=== PATIENT | female | born 1970 | race American Indian/Alaskan Native ===

== ENCOUNTER 2018-09-17 12:40 | Inpatient (IN) | payer OTHER ==
--- NOTE | 2018-09-17 13:01 | Emergency Department Report ---
Blank Doc - Documentation Documentation: 48 y o femae presents with chest pain started today while she was at work, mid tpo left localized hx of dm. labs acc eval
[2018-09-17 13:58] LABS: Basophils # (Auto) 0.1 K/mm3 (0.0-0.1); Basophils % (Auto) 1.5 % (0.0-1.8); Eosinophils # (Auto) 0.3 K/mm3 (0.0-0.4); Eosinophils % (Auto) 4.3 % (0.0-4.3); Hematocrit 38.2 % (30.3-42.9); Hemoglobin 12.7 gm/dl (10.1-14.3); Lymphocytes # (Auto) 2.6 K/mm3 (1.2-5.4); Lymphocytes % (Auto) 37.8 % (13.4-35.0); Mean Corpuscular HGB Conc 33 % (30-34); Mean Corpuscular Volume 92 fl (79-97); Monocytes # (Auto) 0.7 K/mm3 (0.0-0.8); Monocytes % (Auto) 10.3 % (0.0-7.3); Platelet Count 268 K/mm3 (140-440); Red Blood Count 4.15 M/mm3 (3.65-5.03); Red Cell Distribution Width 13.4 % (13.2-15.2)
[2018-09-17 14:08] LABS: Alanine Aminotransferase 35 units/L (7-56); Albumin 4.1 g/dL (3.9-5); BUN/Creatinine Ratio 11; Blood Urea Nitrogen 10 mg/dL (7-17); Calcium 9.5 mg/dL (8.4-10.2); Hemolysis Index 18
--- NOTE | 2018-09-17 14:38 | XRay Report ---
ROUTINE CHEST, TWO VIEWS: HISTORY: chest pain. The trachea, heart, mediastinal contour, lung rodriguez and bony thorax are unremarkable. IMPRESSION: Unremarkable chest x-ray.
[2018-09-17] MEDS ORDERED: ASPIRIN PO ONE (15:19)
[2018-09-17] MEDS ORDERED: NITRO-BID 2% TP ONE ×2 (15:19→17:03)
--- NOTE | 2018-09-17 15:29 | History and Physical Report ---
History of Present Illness Chief complaint: Im having chest pain History of present illness: 48 YO Female with HTN, HLD, DM presents to ED for evaluation. Pt states that she has experienced pain in her chest over the past 1 day with persistent symptoms during the same time frame. Pt states that pain is 5-6/10, Substernal, with radiation to her left shoulder, substernal, not worsened with exertion, not relieved with rest, associated with diaphoresis, as well as shortness of breath. Patient also acknowledges decreased exercise tolerance, as well as dypsnea on exertion. Pt transported to [facility] via private vehicle. Pt seen and evaluated in ED and found to have Angina as well as symptoms consistent with CHF. Pt admitted to telemetry. Cardiology team consulted in ED. Pt admitted to telemetry. No prior admission for review. All listed medication reconciled at time of admission. Past History Past Medical History: diabetes, hypertension, hyperlipidemia Past Surgical History: No surgical history, Other (reviewed) Social history: single Family history: diabetes, hypertension Medications and Allergies Allergies Allergy/AdvReac Type Severity Reaction Status Date / Time No Known Allergies Allergy Unverified 09/17/18 12:54 Home Medications Medication Instructions Recorded Confirmed Last Taken Type Atorvastatin Calcium 80 mg PO QHS 09/17/18 09/17/18 09/16/18 History Losartan/Hydrochlorothiazide 1 each PO DAILY 09/17/18 09/17/18 09/16/18 History [Losartan-Hctz 100-25 mg Tab] Metformin HCl [Glucophage ER] 750 mg PO BID 09/17/18 09/17/18 2 Weeks Ago History ~09/03/18 [place]-3 Fatty Acids/Fish Oil [Fish 4,000 mg PO DAILY 09/17/18 09/17/18 09/16/18 History Oil 1,000 mg Capsule] Venlafaxine [Effexor] 75 mg PO QHS 09/17/18 09/17/18 09/16/18 History Review of Systems Constitutional: no weight loss, no weight gain, no fever, no chills Ears, nose, mouth and throat: no ear pain, no tinnitis, no nose pain, no nasal discharge Breasts: no change in shape, no swelling, no mass Cardiovascular: chest pain, shortness of breath, dyspnea on exertion, decreased exercise tolerance, no palpitations, no rapid/irregular heart beat Respiratory: no cough, no excessive sputum, no congestion Gastrointestinal: no abdominal pain, no vomiting, no constipation, no hematemesis Genitourinary Female: no pelvic pain, no flank pain, no menorrhagia Rectal: no pain, no incontinence, no bleeding Musculoskeletal: no neck stiffness, no neck pain, no arm numbness/tingling, no shooting leg pain Integumentary: no rash, no redness, no wounds, no boils Neurological: no head injury, no paralysis, no parathesias, no tingling Psychiatric: no anxiety, no change in sleep habits, no insomnia, no change in libido Endocrine: no cold intolerance, no polyphagia, no polydipsia, no nocturia Hematologic/Lymphatic: no easy bruising, no easy bleeding, no lymphadenopathy Allergic/Immunologic: no urticaria, no wheezing, no persistent infections Exam - Constitutional Vitals: Temp Pulse Resp BP Pulse Ox 98.2 F 76 18 142/79 98 09/17/18 12:56 09/17/18 12:56 09/17/18 12:56 09/17/18 12:56 09/17/18 12:56 General appearance: Present: mild distress, obese - EENT Eyes: Present: PERRL ENT: hearing intact, clear oral mucosa - Neck Neck: Present: supple, normal ROM - Respiratory Respiratory effort: normal Respiratory: bilateral: CTA - Cardiovascular Heart Sounds: Present: S1 & S2. Absent: rub, click - Extremities Extremities: pulses symmetrical, No edema Peripheral Pulses: within normal limits - Abdominal General gastrointestinal: Present: soft, non-tender, non-distended, normal bowel sounds Female genitourinary: Present: normal - Integumentary Integumentary: Present: clear, warm, dry - Musculoskeletal Musculoskeletal: gait normal, strength equal bilaterally - Psychiatric Psychiatric: appropriate mood/affect, intact judgment & insight - Neurologic Neurologic: CNII-XII intact, moves all extremities Results - Labs CBC & Chem 7: 09/17/18 13:26 09/17/18 13:26 Labs: Abnormal lab results 09/17/18 09/17/18 Range/Units 13:26 13:26 Lymph % (Auto) 37.8 H (13.4-35.0) % [place] % (Auto) 10.3 H (0.0-7.3) % Glucose 212 H (65-100) mg/dL Assessment and Plan - Patient Problems (1) Angina at rest Current Visit: Yes Status: Acute Plan to address problem: Admit to telemetry, cardiology consulted in ED, serial cardiac enzymes, ekg, morphine, supplemental oxygen, nitro, aspirin, stress test (2) CHF (congestive heart failure) Current Visit: Yes Status: Suspected Qualifiers: Heart failure type: diastolic Heart failure chronicity: acute Qualified Code(s): I50.31 - Acute diastolic (congestive) heart failure Plan to address problem: Admit to telemetry, Strict I/O, daily weight, monitor uop q shift, BNP, Echo, afterload reduction, chest x ray, cardiology consulted (3) HTN (hypertension) Current Visit: Yes Status: Acute Qualifiers: Hypertension type: essential hypertension Qualified Code(s): I10 - Essential (primary) hypertension Plan to address problem: Monitor bp q shift, continue medical management (4) HLD (hyperlipidemia) Current Visit: Yes Status: Acute Qualifiers: Hyperlipidemia type: mixed hyperlipidemia Qualified Code(s): E78.2 - Mixed hyperlipidemia Plan to address problem: Lipid panel, statin therapy, risk factor reduction (5) Diabetes Current Visit: Yes Status: Acute Plan to address problem: ADA diet, insulin, accucheck, diabetes education, hgb a1c (6) DVT prophylaxis Current Visit: Yes Status: Acute Plan to address problem: SCD to BLE while in bed, prophylactic lovenox
--- NOTE | 2018-09-17 15:30 | Emergency Department Report ---
ED Chest Pain HPI - General Chief Complaint: Chest Pain Stated Complaint: CHEST PAIN Time Seen by Provider: 09/17/18 12:58 Source: patient Mode of arrival: Ambulatory Limitations: No Limitations - History of Present Illness Initial Comments: Patient is a 48-year-old female with past medical history hypertension diabetes who has a history of losing her 3 years ago to acute coronary arteries syndrome who is presenting with chest pain. Patient is very worrisome she stated that the symptoms she had today are similar to her her who of a heart attack. Patient states she was at work and was at rest at the time when she developed chest pressure with shortness of breath and diaphoresis. Patient states she had some discomfort in her left shoulder as well. Patient states the diaphoresis and short of breath has improved however she still has some pressure on the chest. Patient denies any cough cold congestion fevers or chills. - Related Data Allergies Allergy/AdvReac Type Severity Reaction Status Date / Time No Known Allergies Allergy Unverified 09/17/18 12:54 Heart Score - HEART Score History: Highly suspicious EKG: Non-specific Age: 45-65 Risk factors: > 3 risk factors or hx of atherosclerotic disease Troponin: < normal limit HEART Score: 6 ED Review of Systems ROS: Stated complaint: CHEST PAIN Other details as noted in HPI Comment: All other systems reviewed and negative ED Past Medical Hx - Past Medical History Hx Hypertension: Yes Hx Diabetes: Yes Additional medical history: elevated cholesterol - Surgical History Past Surgical History?: No - Social History Smoking Status: Never Smoker Substance Use Type: None ED Physical Exam - General Limitations: No Limitations General appearance: alert, in no apparent distress - Head Head exam: Present: atraumatic, normocephalic - Eye Eye exam: Present: normal appearance - ENT ENT exam: Present: mucous membranes moist - Neck Neck exam: Present: normal inspection - Respiratory Respiratory exam: Present: normal lung sounds bilaterally. Absent: respiratory distress, wheezes, rales, rhonchi - Cardiovascular Cardiovascular Exam: Present: regular rate, normal rhythm. Absent: systolic murmur, diastolic murmur, rubs, gallop - GI/Abdominal GI/Abdominal exam: Present: soft, normal bowel sounds. Absent: distended, tenderness, guarding, rebound - Extremities Exam Extremities exam: Present: normal inspection - Back Exam Back exam: Present: normal inspection - Neurological Exam Neurological exam: Present: alert, oriented X3 - Psychiatric Psychiatric exam: Present: normal affect, normal mood - Skin Skin exam: Present: warm, dry, intact, normal color. Absent: rash ED Course Vital Signs 09/17/18 12:56 Temperature 98.2 F Pulse Rate 76 Respiratory 18 Rate Blood Pressure 142/79 O2 Sat by Pulse 98 Oximetry FLORES score - Flores Score Age > 65: (0) No Aspirin use within the Past 7 Days: (0) No 3 or more CAD Risk Factors: (1) Yes 2 or more Angina events in past 24 hrs: (1) Yes Known CAD with more than 50% Stenosis: (0) No Elevated Cardiac Markers: (0) No ST Deviation Greater than 0.5mm: (0) No FLORES Score: 2 ED Medical Decision Making - Lab Data Result diagrams: 09/17/18 13:26 09/17/18 13:26 Lab Results 09/17/18 09/17/18 09/17/18 Range/Units 13:26 13:26 13:26 WBC 6.9 (4.5-11.0) K/mm3 RBC 4.15 (3.65-5.03) M/mm3 Hgb 12.7 (10.1-14.3) gm/dl Hct 38.2 (30.3-42.9) % MCV 92 (79-97) fl MCH 31 (28-32) pg MCHC 33 (30-34) % RDW 13.4 (13.2-15.2) % Plt Count 268 (140-440) K/mm3 Lymph % (Auto) 37.8 H (13.4-35.0) % [place] % (Auto) 10.3 H (0.0-7.3) % Eos % (Auto) 4.3 (0.0-4.3) % Baso % (Auto) 1.5 (0.0-1.8) % Lymph # 2.6 (1.2-5.4) K/mm3 [place] # 0.7 (0.0-0.8) K/mm3 Eos # 0.3 (0.0-0.4) K/mm3 Baso # 0.1 (0.0-0.1) K/mm3 Seg Neutrophils % 46.1 (40.0-70.0) % Seg Neutrophils # 3.2 (1.8-7.7) K/mm3 Sodium 138 (137-145) mmol/L Potassium 4.2 (3.6-5.0) mmol/L Chloride 100.1 (98-107) mmol/L Carbon Dioxide 27 (22-30) mmol/L Anion Gap 15 mmol/L BUN 10 (7-17) mg/dL Creatinine 0.9 (0.7-1.2) mg/dL Estimated GFR > 60 ml/min BUN/Creatinine Ratio 11 % Glucose 212 H (65-100) mg/dL Calcium 9.5 (8.4-10.2) mg/dL Total Bilirubin 0.20 (0.1-1.2) mg/dL AST 27 (5-40) units/L ALT 35 (7-56) units/L Alkaline Phosphatase 92 (35-129) units/L Troponin T < 0.010 (0.00-0.029) ng/mL Total Protein 7.4 (6.3-8.2) g/dL Albumin 4.1 (3.9-5) g/dL Albumin/Globulin Ratio 1.2 % HCG, Qual Negative (Negative) - EKG Data -: EKG Interpreted by Co EKG shows normal: sinus rhythm, axis, intervals, QRS complexes, ST-T waves - Radiology Data Radiology results: report reviewed - Medical Decision Making Patient with a heart score of 6. Patient to be admitted to the hospitalist service for further cardiac risk stratification. Patient's first troponin is within normal limits. Patient will have a Nitropaste placed on her chest secondary to continued mild chest discomfort. Patient with hospitalist service under Dr. Nickerson. Critical Care Time: Yes (30) Critical care attestation.: If time is entered above; I have spent that time in minutes in the direct care of this critically ill patient, excluding procedure time. ED Disposition Clinical Impression: Unstable angina Disposition: OP ADMIT IP TO THIS HOSP Is pt being admited?: Yes Does the pt Need Aspirin: No Condition: Stable Instructions: Angina (ED) Time of Disposition: 15:30
[2018-09-17] MEDS ORDERED: NITROSTAT SL PRN (15:31)
[2018-09-17] MEDS ORDERED: PROVENTIL IH PRN (15:31)
[2018-09-17] MEDS ORDERED: BABY ASPIRIN PO STA (15:31)
[2018-09-17] MEDS ORDERED: TYLENOL PO PRN (15:31)
[2018-09-17] MEDS ORDERED: ZOFRAN IV PRN (15:31)
[2018-09-17] MEDS ORDERED: SODIUM CHLORIDE FLUSH SYRINGE 10 ML IV PRN ×2 (15:31)
[2018-09-17 16:30] LABS: Chol/HDL Ratio 4.71 %
[2018-09-17] MEDS ORDERED: BABY ASPIRIN ONE (17:03)
--- NOTE | 2018-09-17 18:47 | Consultation ---
History of Present Illness Consult date: 09/17/18 Consult reason: chest pain History of present illness: The patient is a 48-year-old woman who presented to the emergency room with c hest pain. She describes left upper chest pain, one day duration, pain was nonexertional, not associated with shortness of breath. Most notably, the pain is positional with movement of her thorax, and there is marked tenderness to palpation over the left chest wall location. The chest pain is reproducible with palpation over the area. Other than tenderness to palpation over the left chest wall, she looks and feels well. Comorbidities include hypertension, hyperlipidemia and diabetes. No prior cardiac history. 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 She reports no symptoms of chest pain or shortness of breath at the time. Workup in the emergency room including serial ECGs showed normal sinus rhythm, normal ECG. Chest x-ray is normal, no cardiomegaly, no infiltrates and no interstitial edema. Medications and Allergies Allergies Allergy/AdvReac Type Severity Reaction Status Date / Time No Known Allergies Allergy Unverified 09/17/18 12:54 Home Medications Medication Instructions Recorded Confirmed Last Taken Type Atorvastatin Calcium 80 mg PO QHS 09/17/18 09/17/18 09/16/18 History Losartan/Hydrochlorothiazide 1 each PO DAILY 09/17/18 09/17/18 09/16/18 History [Losartan-Hctz 100-25 mg Tab] Metformin HCl [Glucophage ER] 750 mg PO BID 09/17/18 09/17/18 2 Weeks Ago History ~09/03/18 [place]-3 Fatty Acids/Fish Oil [Fish 4,000 mg PO DAILY 09/17/18 09/17/18 09/16/18 History Oil 1,000 mg Capsule] Venlafaxine [Effexor] 75 mg PO QHS 09/17/18 09/17/18 09/16/18 History Active Meds: Active Medications Acetaminophen (Tylenol) 650 mg PO Q4H PRN PRN Reason: Pain MILD(1-3)/Fever >100.5/VALLECILLO Albuterol (Proventil) 2.5 mg IH Q4HRT PRN PRN Reason: Shortness Of Breath Nitroglycerin (Nitrostat) 0.4 mg SL Q5M PRN PRN Reason: Chest Pain Ondansetron HCl (Zofran) 4 mg IV Q8H PRN PRN Reason: Nausea And Vomiting Sodium Chloride (Sodium Chloride Flush Syringe 10 Ml) 10 ml IV BID BIBI Sodium Chloride (Sodium Chloride Flush Syringe 10 Ml) 10 ml IV PRN PRN PRN Reason: LINE FLUSH Sodium Chloride (Sodium Chloride Flush Syringe 10 Ml) 10 ml IV PRN PRN PRN Reason: LINE FLUSH Review of Systems Cardiovascular: chest pain, no orthopnea, no palpitations, no rapid/irregular heart beat, no edema, no syncope, no lightheadedness, no shortness of breath Physical Examination Vital Signs Temp Pulse Resp BP Pulse Ox 98.2 F 76 18 142/79 98 09/17/18 12:56 09/17/18 12:56 09/17/18 12:56 09/17/18 12:56 09/17/18 12:56 General appearance: no acute distress HEENT: Positive: PERRL Neck: Positive: neck supple Cardiac: Positive: Reg Rate and Rhythm Lungs: Positive: clear to auscultation Neuro: Positive: Grossly Intact Abdomen: Positive: Soft Female genitourinary: deferred Skin: Positive: Clear Extremities: Absent: edema Results 09/17/18 13:26 09/17/18 13:26 Cardiac Enzymes 09/17/18 Range/Units 13:26 AST 27 (5-40) units/L Lipids 09/17/18 Range/Units 15:43 Triglycerides 292 H (2-149) mg/dL Cholesterol 250 H (50-199) mg/dL HDL Cholesterol 53 (40-59) mg/dL Cholesterol/HDL Ratio 4.71 % CBC 09/17/18 Range/Units 13:26 WBC 6.9 (4.5-11.0) K/mm3 RBC 4.15 (3.65-5.03) M/mm3 Hgb 12.7 (10.1-14.3) gm/dl Hct 38.2 (30.3-42.9) % Plt Count 268 (140-440) K/mm3 Lymph # 2.6 (1.2-5.4) K/mm3 [place] # 0.7 (0.0-0.8) K/mm3 Eos # 0.3 (0.0-0.4) K/mm3 Baso # 0.1 (0.0-0.1) K/mm3 Comprehensive Metabolic Panel 09/17/18 Range/Units 13:26 Sodium 138 (137-145) mmol/L Potassium 4.2 (3.6-5.0) mmol/L Chloride 100.1 (98-107) mmol/L Carbon Dioxide 27 (22-30) mmol/L BUN 10 (7-17) mg/dL Creatinine 0.9 (0.7-1.2) mg/dL Glucose 212 H (65-100) mg/dL Calcium 9.5 (8.4-10.2) mg/dL AST 27 (5-40) units/L ALT 35 (7-56) units/L Alkaline Phosphatase 92 (35-129) units/L Total Protein 7.4 (6.3-8.2) g/dL Albumin 4.1 (3.9-5) g/dL EKG interpretations - Telemetry EKG Rhythm: Sinus Rhythm Assessment and Plan - Patient Problems (1) Chest pain, musculoskeletal Current Visit: Yes Status: Acute Plan to address problem: Chest pain is atypical, associated with reproducible tenderness over the left chest wall, appears noncardiac, most likely costochondritis. Serial ECG is normal. Recommend intravenous Toradol for treatment of costochondritis. No further cardiac workup is indicated for musculoskeletal chest pain.
[2018-09-17] MEDS ORDERED: COZAAR ONE (19:32)
[2018-09-17] MEDS ORDERED: COZAAR PO SCH (20:00)
[2018-09-17] MEDS ORDERED: TORADOL IV PRN (20:00)
[2018-09-17] MEDS: HumuLIN R SUB-Q SCH (22:27)
[2018-09-17] MEDS: SODIUM CHLORIDE FLUSH SYRINGE 10 ML IV SCH (22:28)
[2018-09-18] MEDS ORDERED: D50W (25GM) Syringe IV PRN (03:31)
[2018-09-18 04:55] LABS: Basophils % (Auto) 1.1 % (0.0-1.8); Eosinophils % (Auto) 6.1 % (0.0-4.3); Hematocrit 36.5 % (30.3-42.9); Hemoglobin 12.2 gm/dl (10.1-14.3); Lymphocytes % (Auto) 40.8 % (13.4-35.0); Mean Corpuscular HGB Conc 34 % (30-34); Mean Corpuscular Volume 91 fl (79-97); Monocytes % (Auto) 10.6 % (0.0-7.3); Platelet Count 245 K/mm3 (140-440); Red Cell Distribution Width 13.3 % (13.2-15.2)
[2018-09-18 04:56] LABS: Basophils # (Auto) 0.1 K/mm3 (0.0-0.1); Eosinophils # (Auto) 0.4 K/mm3 (0.0-0.4); Lymphocytes # (Auto) 2.4 K/mm3 (1.2-5.4); Monocytes # (Auto) 0.6 K/mm3 (0.0-0.8)
[2018-09-18 05:21] LABS: BUN/Creatinine Ratio 16; Blood Urea Nitrogen 11 mg/dL (7-17); Hemolysis Index 10
[2018-09-18] MEDS: HumuLIN R SUB-Q SCH ×4 (07:55→22:46)
[2018-09-18] MEDS: HumaLOG SUB-Q SCH ×4 (07:55→22:47)
[2018-09-18] MEDS: HCTZ PO SCH (10:05)
[2018-09-18] MEDS: FISH OIL PO SCH (10:06)
[2018-09-18] MEDS: COZAAR PO SCH (10:09)
[2018-09-18] MEDS: SODIUM CHLORIDE FLUSH SYRINGE 10 ML IV SCH ×2 (10:09→22:47)
--- NOTE | 2018-09-18 11:08 | Progress Note ---
Assessment and Plan Chest pain is atypical associated with reproducible tenderness over the left chest wall, appears noncardiac, most likely costochondritis. Hypertension Diabetes Hyperlipidemia Recommend Trial of intravenous Toradol for treatment of costochondritis. Otherwise, no further cardiac workup is indicated for musculoskeletal chest pain. Subjective Date of service: 09/18/18 Interval history: Patient reports soreness of her chest but this has somewhat improved since admission. Objective Vital Signs Temp Pulse Resp BP BP Pulse Ox 09/18/18 08:03 98.5 F 67 16 111/66 98 09/18/18 05:41 98.4 F 64 20 108/55 98 09/18/18 04:04 89 09/18/18 00:58 98.3 F 68 20 98/50 96 09/17/18 21:04 98.3 F 81 20 112/69 94 09/17/18 20:21 77 14 147/81 97 09/17/18 20:11 77 12 147/81 99 09/17/18 20:04 18 09/17/18 20:01 70 14 147/81 99 09/17/18 19:51 77 16 147/81 98 09/17/18 19:41 72 15 147/81 98 09/17/18 19:31 79 15 147/81 98 09/17/18 19:21 78 13 147/81 98 09/17/18 19:11 84 13 147/81 99 09/17/18 19:01 81 13 153/76 99 09/17/18 18:58 98.4 F 74 18 146/74 99 09/17/18 18:51 73 12 153/76 98 09/17/18 18:41 97 H 22 133/80 99 09/17/18 18:30 71 16 147/81 98 09/17/18 18:21 76 15 133/80 99 09/17/18 18:10 72 16 128/63 99 09/17/18 18:01 80 13 128/63 98 09/17/18 17:51 76 12 143/87 99 09/17/18 17:41 67 15 144/79 99 09/17/18 17:30 68 16 144/79 100 09/17/18 17:21 68 14 155/86 100 09/17/18 17:12 18 100 09/17/18 17:11 70 17 145/88 100 09/17/18 17:10 72 145/88 09/17/18 17:09 79 15 145/88 99 09/17/18 17:00 72 18 145/88 100 09/17/18 16:51 77 14 98 09/17/18 16:41 68 14 99 09/17/18 16:31 74 17 100 09/17/18 16:21 77 13 99 09/17/18 16:10 86 14 99 09/17/18 12:56 98.2 F 76 18 142/79 98 - Physical Examination General: No Apparent Distress HEENT: Positive: PERRL Neck: Positive: neck supple Cardiac: Positive: Reg Rate and Rhythm Lungs: Positive: Normal Breath Sounds Neuro: Positive: Grossly Intact Abdomen: Positive: Soft Extremities: Absent: edema - Labs and Meds Cardiac Enzymes 09/17/18 Range/Units 13:26 AST 27 (5-40) units/L Lipids 09/17/18 Range/Units 15:43 Triglycerides 292 H (2-149) mg/dL Cholesterol 250 H (50-199) mg/dL HDL Cholesterol 53 (40-59) mg/dL Cholesterol/HDL Ratio 4.71 % CBC 09/17/18 09/18/18 Range/Units 13:26 04:32 WBC 6.9 5.8 (4.5-11.0) K/mm3 RBC 4.15 4.00 (3.65-5.03) M/mm3 Hgb 12.7 12.2 (10.1-14.3) gm/dl Hct 38.2 36.5 (30.3-42.9) % Plt Count 268 245 (140-440) K/mm3 Lymph # 2.6 2.4 (1.2-5.4) K/mm3 [place] # 0.7 0.6 (0.0-0.8) K/mm3 Eos # 0.3 0.4 (0.0-0.4) K/mm3 Baso # 0.1 0.1 (0.0-0.1) K/mm3 Comprehensive Metabolic Panel 09/17/18 09/18/18 Range/Units 13:26 04:32 Sodium 138 139 (137-145) mmol/L Potassium 4.2 4.1 (3.6-5.0) mmol/L Chloride 100.1 100.9 (98-107) mmol/L Carbon Dioxide 27 25 (22-30) mmol/L BUN 10 11 (7-17) mg/dL Creatinine 0.9 0.7 (0.7-1.2) mg/dL Glucose 212 H 205 H (65-100) mg/dL Calcium 9.5 9.0 (8.4-10.2) mg/dL AST 27 (5-40) units/L ALT 35 (7-56) units/L Alkaline Phosphatase 92 (35-129) units/L Total Protein 7.4 (6.3-8.2) g/dL Albumin 4.1 (3.9-5) g/dL
--- NOTE | 2018-09-18 16:37 | Progress Note ---
Assessment and Plan Assessment and plan: Chest pain Trial of Toradol iv Discussed with cardiology Hypertension monitor BP Diabetes mellitus type 2 Fingerstick qac and hs Hyperlipidemia statin Poss dc home tomorrow if chest pain subsides History Interval history: Chest pain, sharp tender to touch Hospitalist Physical - Physical exam Narrative exam: Gen: Not in acute distress, lying in bed HEENT: Normocephalic, atraumatic Neck: supple, no JVD Heart: S1 and S2 reg, no murmurs, rubs or gallop Lungs: Clear, no cackles, tender left chest walli Abd: soft, non tender, non distended, normal BS Ext: No edema, no clubbing, no cyanosis, Neuro: AAO x 3, no focal signs, moves all ext Psych:Normal mood - Constitutional Vitals: Temp Pulse Resp BP Pulse Ox 98.5 F 90 20 111/66 99 09/18/18 08:03 09/18/18 12:00 09/18/18 08:04 09/18/18 08:03 09/18/18 08:04 General appearance: Present: obese Results - Labs CBC & Chem 7: 09/18/18 04:32 09/18/18 04:32 Labs: Laboratory Last Values WBC 5.8 K/mm3 (4.5-11.0) 09/18/18 04:32 RBC 4.00 M/mm3 (3.65-5.03) 09/18/18 04:32 Hgb 12.2 gm/dl (10.1-14.3) 09/18/18 04:32 Hct 36.5 % (30.3-42.9) 09/18/18 04:32 MCV 91 fl (79-97) 09/18/18 04:32 MCH 31 pg (28-32) 09/18/18 04:32 MCHC 34 % (30-34) 09/18/18 04:32 RDW 13.3 % (13.2-15.2) 09/18/18 04:32 Plt Count 245 K/mm3 (140-440) 09/18/18 04:32 Lymph % (Auto) 40.8 % (13.4-35.0) H 09/18/18 04:32 [place] % (Auto) 10.6 % (0.0-7.3) H 09/18/18 04:32 Eos % (Auto) 6.1 % (0.0-4.3) H 09/18/18 04:32 Baso % (Auto) 1.1 % (0.0-1.8) 09/18/18 04:32 Lymph # 2.4 K/mm3 (1.2-5.4) 09/18/18 04:32 [place] # 0.6 K/mm3 (0.0-0.8) 09/18/18 04:32 Eos # 0.4 K/mm3 (0.0-0.4) 09/18/18 04:32 Baso # 0.1 K/mm3 (0.0-0.1) 09/18/18 04:32 Seg Neutrophils % 41.4 % (40.0-70.0) 09/18/18 04:32 Seg Neutrophils # 2.4 K/mm3 (1.8-7.7) 09/18/18 04:32 D-Dimer 198.72 ng/mlDDU (0-234) 09/17/18 15:36 Sodium 139 mmol/L (137-145) 09/18/18 04:32 Potassium 4.1 mmol/L (3.6-5.0) 09/18/18 04:32 Chloride 100.9 mmol/L (98-107) 09/18/18 04:32 Carbon Dioxide 25 mmol/L (22-30) 09/18/18 04:32 Anion Gap 17 mmol/L 09/18/18 04:32 BUN 11 mg/dL (7-17) 09/18/18 04:32 Creatinine 0.7 mg/dL (0.7-1.2) 09/18/18 04:32 Estimated GFR > 60 ml/min 09/18/18 04:32 BUN/Creatinine Ratio 16 % 09/18/18 04:32 Glucose 205 mg/dL (65-100) H 09/18/18 04:32 POC Glucose 177 (70-105) H 09/18/18 11:55 Hemoglobin A1c 8.7 % (4-6) H 09/18/18 04:32 Calcium 9.0 mg/dL (8.4-10.2) 09/18/18 04:32 Total Bilirubin 0.20 mg/dL (0.1-1.2) 09/17/18 13:26 AST 27 units/L (5-40) 09/17/18 13:26 ALT 35 units/L (7-56) 09/17/18 13:26 Alkaline Phosphatase 92 units/L (35-129) 09/17/18 13:26 Troponin T < 0.010 ng/mL (0.00-0.029) 09/17/18 23:49 NT-Pro-B Natriuret Pep 47.31 pg/mL (0-450) 09/17/18 15:36 Total Protein 7.4 g/dL (6.3-8.2) 09/17/18 13:26 Albumin 4.1 g/dL (3.9-5) 09/17/18 13:26 Albumin/Globulin Ratio 1.2 % 09/17/18 13:26 Triglycerides 292 mg/dL (2-149) H 09/17/18 15:43 Cholesterol 250 mg/dL (50-199) H 09/17/18 15:43 LDL Cholesterol Direct 180 mg/dL (50-130) H 09/17/18 15:43 HDL Cholesterol 53 mg/dL (40-59) 09/17/18 15:43 Cholesterol/HDL Ratio 4.71 % 09/17/18 15:43 HCG, Qual Negative (Negative) 09/17/18 13:26 Active Medications - Current Medications Current Medications: Generic Name Dose Route Start Last Admin Trade Name Freq PRN Reason Stop Dose Admin Acetaminophen 650 mg 09/17/18 15:31 Tylenol PO Q4H PRN Pain MILD(1-3)/Fever >100.5/VALLECILLO Albuterol 2.5 mg 09/17/18 15:31 Proventil IH Q4HRT PRN Shortness Of Breath Atorvastatin Calcium 80 mg 09/18/18 22:00 Lipitor PO QHS BIBI Dextrose 50 ml 09/18/18 03:31 D50w (25gm) Syringe IV PRN PRN Hypoglycemia Enoxaparin Sodium 40 mg 09/18/18 22:00 Lovenox SUB-Q QDAY@2200 BIBI Fish Oil 4,000 mg 09/18/18 10:00 09/18/18 10:06 Fish Oil PO 4,000 mg DAILY BIBI Administration Hydrochlorothiazide 25 mg 09/18/18 10:00 09/18/18 10:05 Hctz PO 25 mg QDAY BIBI Administration Insulin Human Lispro 0 unit 09/18/18 07:30 Humalog SUB-Q ACHS BIBI Protocol Insulin Human Regular 0 units 09/17/18 22:00 09/17/18 22:27 Humulin R SUB-Q 3 units ACHS BIBI Administration Protocol Ketorolac Tromethamine 30 mg 09/18/18 19:00 Toradol IV 09/20/18 03:01 Q8H [facility] Losartan Potassium 100 mg 09/18/18 10:00 09/18/18 10:09 Cozaar PO 100 mg DAILY BIBI Administration Nitroglycerin 0.4 mg 09/17/18 15:31 Nitrostat SL Q5M PRN Chest Pain Ondansetron HCl 4 mg 09/17/18 15:31 Zofran IV Q8H PRN Nausea And Vomiting Sodium Chloride 10 ml 09/17/18 22:00 09/18/18 10:09 Sodium Chloride Flush Syringe 10 Ml IV 10 ml BID BIBI Administration Sodium Chloride 10 ml 09/17/18 15:31 Sodium Chloride Flush Syringe 10 Ml IV PRN PRN LINE FLUSH Venlafaxine HCl 75 mg 09/18/18 22:00 Effexor PO QHS BIBI
[2018-09-18] MEDS ORDERED: EFFEXOR PO SCH (22:00)
[2018-09-18] MEDS ORDERED: LOVENOX SUB-Q SCH (22:00)
[2018-09-18] MEDS: TORADOL IV SCH (22:46)
[2018-09-19] MEDS: TORADOL IV SCH ×2 (03:46→11:00)
[2018-09-19] MEDS: FISH OIL PO SCH (09:31)
[2018-09-19] MEDS: HCTZ PO SCH (09:31)
[2018-09-19] MEDS: HumaLOG SUB-Q SCH ×2 (09:33→11:30)
[2018-09-19] MEDS: HumuLIN R SUB-Q SCH ×2 (09:35→11:30)
[2018-09-19] MEDS: SODIUM CHLORIDE FLUSH SYRINGE 10 ML IV SCH (09:37)
--- NOTE | 2018-09-19 10:52 | Progress Note ---
Assessment and Plan Chest pain is atypical, now resolved associated with reproducible tenderness over the left chest wall, appears noncardiac, most likely costochondritis. Hypertension Diabetes Hyperlipidemia Recommend Stable cardiac sanchez for discharge. Outpatient cardiac workup will be done as an outpatient. Patient will f/u with [facility] as scheduled September 28. Subjective Date of service: 09/19/18 Interval history: Patient reports she is free of chest pain. Objective Vital Signs Temp Pulse Resp BP Pulse Ox 09/19/18 08:27 98.4 F 75 20 116/59 97 09/19/18 07:00 84 09/19/18 00:15 98.1 F 82 18 118/74 99 09/18/18 23:19 81 09/18/18 19:26 98.4 F 80 18 119/66 95 09/18/18 16:27 98.5 F 80 16 115/61 96 09/18/18 12:25 98.3 F 77 16 115/73 95 09/18/18 12:00 90 - Physical Examination General: No Apparent Distress HEENT: Positive: PERRL Neck: Positive: neck supple Cardiac: Positive: Reg Rate and Rhythm Lungs: Positive: Normal Breath Sounds Neuro: Positive: Grossly Intact Extremities: Absent: edema
[2018-09-19] MEDS: COZAAR PO SCH (11:28)
[2018-09-19 11:34] VITALS: BP 136/74
--- NOTE | 2018-09-19 11:36 | Discharge Summary ---
Providers - Providers Date of Admission: 09/17/18 15:31 Date of discharge: 09/19/18 Attending physician: COLLIN BRO 09/17/18 Consult to Cardiac Rehabilitation [CONS] Routine Reason For Exam: Phase I 09/17/18 15:32 Consult to Cardiology [CONS] Routine Consulting Provider: ANETTE BERRIOS Reason For Exam: angina/chf Hospitalization Condition: Fair Hospital course: Patient is 48 yo with hypertension, diabetes. She presented with chest pain, was evaluated in ED and admitted to rule out acute coronary syndrome. Patient was evaluated by Clinical Immunologist . he determined that chest pain reproducible, likely costochondritis. She was put on iv Toradol, chest pain subsided and she was discharged home on 09/19/18. Total time spent on discharge, 31 mins Disposition: DC-[id number] TO HOME OR SELFCARE - Discharge Diagnoses (1) Costochondritis, acute Status: Acute (2) Chest pain, musculoskeletal Status: Acute (3) Diabetes Status: Chronic Qualifiers: Diabetes mellitus type: type 2 (4) HLD (hyperlipidemia) Status: Acute Qualifiers: Hyperlipidemia type: mixed hyperlipidemia Qualified Code(s): E78.2 - Mixed hyperlipidemia (5) HTN (hypertension) Status: Acute Qualifiers: Hypertension type: essential hypertension Qualified Code(s): I10 - Essential (primary) hypertension Core Measure Documentation - Palliative Care Palliative Care/ Comfort Measures: Not Applicable - Core Measures Any of the following diagnoses?: none Exam - Physical Exam Narrative exam: Gen: Not in acute distress, lying in bed HEENT: Normocephalic, atraumatic Neck: supple, no JVD Heart: S1 and S2 reg, no murmurs, rubs or gallop Lungs: Clear, no cackles, tender left chest walli Abd: soft, non tender, non distended, normal BS Ext: No edema, no clubbing, no cyanosis, Neuro: AAO x 3, no focal signs, moves all ext Psych:Normal mood - Constitutional Vitals: Temp Pulse Resp BP Pulse Ox 98.4 F 75 20 116/59 97 09/19/18 08:27 09/19/18 08:27 09/19/18 08:27 09/19/18 08:27 09/19/18 08:27 Plan Activity: no restrictions Additional Instructions: 1.Follow up with PCP in 1 week. 2.Follow up with Dr. Sloan in 1 week Follow up with: [facility] [Other] - 7 Days ALAN SLOAN MD [Staff Physician] - 7 Days Prescriptions: Ibuprofen 400 mg PO Q6H PRN #20 tablet PRN Reason: Pain , Severe (7-10) Famotidine [Pepcid] 20 mg PO BID #30 tablet
== END 2018-09-19 14:44 | disposition home or self-care (01) | DRG 205 ==
LOC: ED 12:40 → 4A 15:31
PROVIDERS: ADMIT Internal Medicine; ATTEND Internal Medicine
DX: M94.0 Chondrocostal junction syndrome [Tietze] (principal); I50.31 Acute diastolic (congestive) heart failure; I11.0 Hypertensive heart disease with heart failure; E78.2 Mixed hyperlipidemia; R07.89 Other chest pain; E78.00 Pure hypercholesterolemia, unspecified; E11.9 Type 2 diabetes mellitus without complications; Z83.3 Family history of diabetes mellitus; Z82.49 Family history of ischemic heart disease and other diseases of the circulatory system; Z79.84 Long term (current) use of oral hypoglycemic drugs
CPT/HCPCS: 36415; 71046; 80048; 80053; 80061; 82962; 83036; 83880; 84484; 84703; 85025; 85379; 93005; 93010; G0378; A9270-GY; J1650; J1815; J1885